=== PATIENT | female | born 1955 | race Caucasian/White ===

== ENCOUNTER 2017-01-03 05:37 | Inpatient (IN) | payer MEDICAID ==
[~2017-01-03] VITALS: Ht 152.4 cm; Wt 68.7 kg
[~2017-01-03 05:37] MED LIST: CITA20TA5 PO; ESTR1TAB15 PO; HYDR-3240 PO; IBUP-1223 PO; PRAV20TA2 PO; TIZA4CAP PO
[2017-01-03] MEDS ORDERED: LACTATED RINGERS 1,000 ML IV SCH (06:46)
[2017-01-03] MEDS ORDERED: GABA300C10 PO (06:48)
[2017-01-03 06:49] VITALS: BP 102/73
[2017-01-03] MEDS ORDERED: BACITRACIN 50,000 UNIT ONE (06:50)
[2017-01-03] MEDS ORDERED: BUPIVACAINE/PF 0.5% ONE (06:50)
[2017-01-03] MEDS ORDERED: EPINEPHRINE 1 MG/ML, 1ML ONE (06:50)
[2017-01-03] MEDS ORDERED: THROMBIN 5,000 UNIT VIAL TP ONE (06:50)
[2017-01-03] MEDS ORDERED: HYDR-3240 PO (07:24)
[2017-01-03] MEDS ORDERED: FENTANYL PF 100 MCG/2ML ONE ×3 (07:24→10:03)
[2017-01-03] MEDS ORDERED: MIDAZOLAM 1 MG/ML, 2ML ONE (07:24)
[2017-01-03] MEDS ORDERED: PNEUMOCOCCAL 23 VACCINE IM-VACC ONE (07:30)
[2017-01-03] MEDS ORDERED: DEXAMETHASONE 4 MG/ML, 1ML ONE (07:57)
[2017-01-03] MEDS ORDERED: EPHEDRINE 50 MG/ML, 1ML ONE (07:57)
[2017-01-03] MEDS ORDERED: ONDANSETRON 2MG/ML, 2ML ONE (07:57)
[2017-01-03] MEDS ORDERED: PROPOFOL 10 MG/ML, 20ML ONE (07:57)
[2017-01-03] MEDS ORDERED: CEFAZOLIN 1,000 MG ONE (07:57)
[2017-01-03] MEDS ORDERED: SUCCINYLCHOLINE 20 MG/ML, 10ML ONE (07:57)
[2017-01-03] MEDS ORDERED: METOCLOPRAMIDE 5 MG/ML, 2ML ONE (07:57)
[2017-01-03] MEDS ORDERED: ONDANSETRON 2MG/ML, 2ML IVPush PRN ×2 (08:30→14:00)
[2017-01-03] MEDS ORDERED: MIDAZOLAM 1 MG/ML, 2ML IV PRN (08:30)
[2017-01-03] MEDS ORDERED: OXYcodone 5 MG/5 ML ORAL.SOL UDC PO PRN (08:30)
[2017-01-03] MEDS ORDERED: ALBUTEROL/IPRATROPIUM 2.5MG/0.5MG, 3 ML NPPB PRN (08:30)
[2017-01-03] MEDS ORDERED: MEPERIDINE/PF 25MG/0.5ML IVPush PRN (08:30)
[2017-01-03] MEDS ORDERED: LABETALOL 5MG/ML, 20ML IV PRN (08:30)
[2017-01-03] MEDS ORDERED: hydrALAzine 20 MG/ML, 1ML IV PRN (08:30)
[2017-01-03] MEDS ORDERED: ACETAMINOPHEN 325 MG TABLET PO PRN (08:30)
[2017-01-03] MEDS ORDERED: EPHEDRINE 50 MG/ML, 1ML IVPush PRN (08:30)
[2017-01-03] MEDS ORDERED: PROMETHAZINE 25 MG/ML, 1ML IV PRN (08:30)
[2017-01-03] MEDS ORDERED: HYDROmorphone 2 MG/ML, 1ML ONE (09:13)
[2017-01-03] MEDS ORDERED: HYDROmorphone 1 MG/ML, 1ML ONE (09:27)
[2017-01-03] MEDS ORDERED: OXYcodone 5 MG/5 ML ORAL.SOL UDC ONE (09:27)
[2017-01-03] MEDS ORDERED: ACETAMINOPHEN 650 MG/20.3 ML UDC ONE (09:27)
[2017-01-03] MEDS: HYDROmorphone 1 MG/ML, 1ML IV PRN ×2 (09:31→09:44)
[2017-01-03] MEDS ORDERED: METHOCARBAMOL 750 MG TABLET ONE (09:53)
[2017-01-03] MEDS ORDERED: METHOCARBAMOL 750 MG TABLET PO ONE (10:00)
[2017-01-03] MEDS: FENTANYL PF 100 MCG/2ML IV PRN ×2 (10:06→10:15)
[2017-01-03] MEDS ORDERED: OXYcodone/APAP 10/325MG TABLET ONE (13:50)
[2017-01-03] MEDS: OXYcodone/APAP 10/325MG TABLET PO PRN ×2 (13:57→21:23)
[2017-01-03] MEDS ORDERED: DIPHENHYDRAMINE 50 MG CAPSULE PO PRN (14:00)
[2017-01-03] MEDS ORDERED: DIPHENHYDRAMINE 50 MG/ML, 1ML IM PRN (14:00)
[2017-01-03] MEDS ORDERED: PHARMACY MAY ADJ FOR RENAL FX MC PRN (14:00)
[2017-01-03] MEDS ORDERED: ZOLPIDEM 5MG TABLET PO PRN (14:00)
[2017-01-03] MEDS ORDERED: SENNA/DOCUSATE TABLET PO PRN (14:00)
[2017-01-03] MEDS ORDERED: PROMETHAZINE 25 MG/ML, 1ML IM PRN (14:00)
[2017-01-03] MEDS ORDERED: HYDROmorphone/PF 4 MG/ML, 1ML IM PRN (14:00)
[2017-01-03] MEDS ORDERED: MAGNESIUM HYDROXIDE 8%, 30ML UDC PO PRN (14:00)
[2017-01-03] MEDS ORDERED: BISACODYL 10 MG SUPP PR PRN (14:00)
[2017-01-03] MEDS ORDERED: HYDROmorphone 2 MG/ML, 1ML IM PRN (16:00)
[2017-01-03] MEDS: CEFAZOLIN PMX 1GM/50ML 50 ML IVPB SCH (16:53)
[2017-01-03] MEDS: GABAPENTIN 300 MG CAPSULE PO SCH ×2 (16:53→21:17)
[2017-01-03] MEDS: NS + 20MEQ KCL 1,000 ML IV SCH (16:53)
[2017-01-03] MEDS: TIZANIDINE 4MG TABLET PO SCH (17:10)
[2017-01-03] MEDS ORDERED: METHOCARBAMOL 750 MG TABLET PO PRN (17:35)
[2017-01-03 17:38] VITALS: BP 109/70
[2017-01-03 20:04] VITALS: BP 104/65
[2017-01-03] MEDS ORDERED: METHOCARBAMOL 750 MG in DEXTROSE 5% 100 ML IV PRN (22:00)
[2017-01-03 23:44] VITALS: BP 110/58
[2017-01-04] MEDS: CEFAZOLIN PMX 1GM/50ML 50 ML IVPB SCH (01:14)
[2017-01-04] MEDS: TIZANIDINE 4MG TABLET PO SCH ×2 (01:14→08:46)
[2017-01-04] MEDS: OXYcodone/APAP 10/325MG TABLET PO PRN ×2 (01:44→06:26)
[2017-01-04 04:00] VITALS: BP 92/60
[2017-01-04] MEDS: NS + 20MEQ KCL 1,000 ML IV SCH (06:01)
[2017-01-04 08:42] VITALS: BP 115/75
[2017-01-04] MEDS: GABAPENTIN 300 MG CAPSULE PO SCH (08:48)
[2017-01-04] MEDS ORDERED: ESTRADIOL 1 MG TABLET PO SCH (09:00)
[2017-01-04] MEDS ORDERED: CITALOPRAM 20 MG TABLET PO SCH (09:00)
[2017-01-04] MEDS ORDERED: SENNA/DOCUSATE TABLET PO SCH (09:00)
[2017-01-04] MEDS ORDERED: OXYC-307 PO (09:08)
== END 2017-01-04 09:55 | disposition home or self-care (01) | DRG 517 ==
LOC: OUT 05:37 → ORIP 12:55 → 4NOR 15:12 → DCLOUNGE 01-04 09:48
PROVIDERS: ADMIT Neurological Surgery; ATTEND Neurological Surgery
PROC: 01NB0ZZ Release Lumbar Nerve, Open Approach (ICD-10-PCS; principal; 2017-01-03 08:00)
DX: M54.16 Radiculopathy, lumbar region (principal); M48.07 Spinal stenosis, lumbosacral region; Z87.891 Personal history of nicotine dependence
CPT/HCPCS: 72100; 90732; 93005; J0171; J0690; J1100; J1170; J2250; J2405; J2704; J3010; J3480; J3490; J0330; J2765; J7120

== ENCOUNTER 2021-01-19 00:31 | Inpatient (IN) | payer MEDICAID ==
[~2021-01-19] VITALS: Ht 160 cm; Wt 74.5 kg
[~2021-01-19 00:31] MED LIST changes: -CITA20TA5 PO; +CITA20TA6 PO; +GABA300C10 PO; +HYDR-2214 PO; -HYDR-3240 PO; +OXYC-501 PO
[2021-01-19] MEDS ORDERED: MORPHINE SULFATE 4 MG/ML, 1ML ONE (00:47)
[2021-01-19] MEDS ORDERED: ONDANSETRON 2MG/ML, 2ML ONE (00:47)
[2021-01-19] MEDS ORDERED: SODIUM CHLORIDE FLUSH 10ML SYR IVF ONE (01:00)
[2021-01-19] MEDS ORDERED: MORPHINE SULFATE 4 MG/ML, 1ML IVPush PRN (01:00)
[2021-01-19] MEDS ORDERED: ONDANSETRON 2MG/ML, 2ML IVPush ONE (01:00)
[2021-01-19] MEDS ORDERED: SODIUM CHLORIDE 0.9% 1,000ML IVBOLUS ONE (01:00)
[2021-01-19 01:13] LABS: ALANINE AMINOTRANSFERASE 460 U/L (12-78); ALBUMIN 3.2 g/dL (3.4-5.0); ANION GAP 9 mmol/L (5-15); CALCIUM 8.8 mg/dL (8.5-10.1); CHLORIDE 106 mmol/L (98-107); CREATININE 0.67 mg/dL (0.55-1.02)
[2021-01-19 01:15] LABS: ALKALINE PHOSPHATASE 546 U/L (45-117); BILIRUBIN,TOTAL 4.1 mg/dL (0.2-1.0); TOTAL PROTEIN 7.4 g/dL (6.4-8.2)
[2021-01-19 01:18] LABS: MEAN CORPUSCULAR HEMOGLOBIN 31.2 pg (27.0-34.8); MEAN CORPUSCULAR HGB CONC 34.1 g/dL (32.4-35.8); MEAN PLATELET VOLUME 8.8 fL (7.4-10.4); PLATELET COUNT 236 x10^3/uL (130-400); RED BLOOD COUNT 3.93 x10^6/uL (3.82-5.3); RED CELL DISTRIBUTION WIDTH 13.3 % (9.6-15.2)
[2021-01-19 01:47] LABS: <RBC MORPHOLOGY> NORMAL; BANDS%(MANUAL) 32 % (0-7); LYMPH#(MANUAL) 0.58 x10^3/uL (1-3.4); LYMPHS% (MANUAL) 6 % (22-44); METAMYELOCYTES# (MANUAL) 0.19 x10^3/uL (0-0); METAMYELOCYTES% (MANUAL) 2 % (0-1); MONOS% (MANUAL) 1 % (2-9); PMNS WITH VACUOLES 1+; SEG#(MANUAL) 5.72 x10^3/uL (1.8-6.8); SEGS% (MANUAL) 59 % (42-75)
[2021-01-19 01:48] LABS: <PLATELET ESTIMATE> ADEQUATE; <PLT MORPHOLOGY> NORMAL PLT MORPH
[2021-01-19] MEDS ORDERED: POTASSIUM CHLORIDE 40 MEQ in SODIUM CHLORIDE 0.9% 500 ML IV ONE (02:00)
[2021-01-19] MEDS ORDERED: PIPERACILLIN/TAZO 3.375 GM in DEXTROSE 5% 50 ML IVPB ONE (02:00)
[2021-01-19] MEDS ORDERED: LABETALOL 5MG/ML, 20ML IVPush PRN (03:00)
[2021-01-19] MEDS ORDERED: LACTATED RINGERS 1,000 ML IV SCH (03:00)
[2021-01-19 04:33] VITALS: BP 110/71
[2021-01-19] MEDS: KETOROLAC 30 MG/1 ML IV PRN ×2 (04:42→10:26)
[2021-01-19] MEDS: ONDANSETRON 2MG/ML, 2ML IVPush PRN ×2 (06:44→13:34)
[2021-01-19 07:36] VITALS: BP 110/68
[2021-01-19] MEDS: morphine SULFATE 10 MG/ML, 1ML IVPush PRN ×4 (07:52→21:11)
[2021-01-19] MEDS: FAMOTIDINE 20 MG/2 ML IVPush SCH ×2 (07:52→21:09)
[2021-01-19] MEDS: PIPERACILLIN/TAZO 3.375 GM in DEXTROSE 5% 50 ML IV SCH ×3 (08:52→21:09)
[2021-01-19 09:12] LABS: BASOPHILS % (AUTO) 0 % (0-1); EOSINOPHILS % (AUTO) 0 % (1-7); LYMPHOCYTES % (AUTO) 3 % (22-44); MEAN CORPUSCULAR HEMOGLOBIN 31.6 pg (27.0-34.8); MEAN CORPUSCULAR HGB CONC 34.3 g/dL (32.4-35.8); MEAN PLATELET VOLUME 8.9 fL (7.4-10.4); MONOCYTES % (AUTO) 4 % (2-9); NEUTROPHILS % (AUTO) 92 % (42-75); PLATELET COUNT 211 x10^3/uL (130-400); RED BLOOD COUNT 3.68 x10^6/uL (3.82-5.3); RED CELL DISTRIBUTION WIDTH 13.5 % (9.6-15.2)
[2021-01-19 09:19] LABS: ANION GAP 8 mmol/L (5-15); CALCIUM 8.2 mg/dL (8.5-10.1); CHLORIDE 111 mmol/L (98-107); CREATININE 0.63 mg/dL (0.55-1.02)
[2021-01-19 11:55] LABS: ALBUMIN 2.9 g/dL (3.4-5.0); BILIRUBIN, DIRECT 3.5 mg/dL (0.1-0.2); BILIRUBIN,INDIRECT 1.1 mg/dL (0.0-2.0); BILIRUBIN,TOTAL 4.6 mg/dL (0.2-1.0); TOTAL PROTEIN 6.9 g/dL (6.4-8.2)
[2021-01-19] MEDS ORDERED: METH-639 PO (12:21)
[2021-01-19] MEDS ORDERED: OMEP-110 PO (12:21)
[2021-01-19] MEDS ORDERED: PREG75CA PO (12:21)
[2021-01-19 13:25] VITALS: BP 113/74
[2021-01-19] MEDS: GABAPENTIN 300 MG CAPSULE PO SCH ×2 (15:45→21:10)
[2021-01-19] MEDS ORDERED: TIZANIDINE 4MG TABLET PO SCH (16:00)
[2021-01-19] MEDS: POTASSIUM CHLORIDE 10 MEQ in D5%-LACTATED RINGERS 1,000 ML IV SCH (16:26)
[2021-01-19 18:33] VITALS: BP 105/70
[2021-01-19] MEDS: PREGABALIN 75 MG CAPSULE PO SCH (21:09)
[2021-01-20 00:51] VITALS: BP 123/79
[2021-01-20] MEDS: PIPERACILLIN/TAZO 3.375 GM in DEXTROSE 5% 50 ML IV SCH ×4 (02:59→21:05)
[2021-01-20] MEDS: KETOROLAC 30 MG/1 ML IV PRN ×2 (05:06→08:55)
[2021-01-20] MEDS: ONDANSETRON 2MG/ML, 2ML IVPush PRN (05:11)
[2021-01-20] MEDS: GABAPENTIN 300 MG CAPSULE PO SCH ×4 (05:22→21:05)
[2021-01-20 05:34] LABS: MEAN CORPUSCULAR HEMOGLOBIN 30.9 pg (27.0-34.8); MEAN CORPUSCULAR HGB CONC 33.6 g/dL (32.4-35.8); MEAN PLATELET VOLUME 8.9 fL (7.4-10.4); PLATELET COUNT 206 x10^3/uL (130-400); RED BLOOD COUNT 3.45 x10^6/uL (3.82-5.3); RED CELL DISTRIBUTION WIDTH 13.6 % (9.6-15.2)
[2021-01-20 05:45] LABS: CALCIUM 8.2 mg/dL (8.5-10.1); CHLORIDE 106 mmol/L (98-107)
[2021-01-20 05:50] LABS: ALANINE AMINOTRANSFERASE 231 U/L (12-78); ALBUMIN 2.4 g/dL (3.4-5.0); ALKALINE PHOSPHATASE 355 U/L (45-117); ANION GAP 5 mmol/L (5-15); BILIRUBIN,TOTAL 3.2 mg/dL (0.2-1.0); CREATININE 0.52 mg/dL (0.55-1.02); TOTAL PROTEIN 6.3 g/dL (6.4-8.2)
[2021-01-20] MEDS: POTASSIUM CHLORIDE 10 MEQ in D5%-LACTATED RINGERS 1,000 ML IV SCH (06:36)
[2021-01-20 07:58] VITALS: BP 117/70
[2021-01-20] MEDS: FAMOTIDINE 20 MG/2 ML IVPush SCH ×2 (08:55→21:05)
[2021-01-20 08:56] LABS: BAND#(MANUAL) 1.69 x10^3/uL; BANDS%(MANUAL) 13 % (0-7); EOS#(MANUAL) 0.13 x10^3/uL (0.0-0.4); EOS% (MANUAL) 1 % (1-7); LYMPH#(MANUAL) 1.04 x10^3/uL (1-3.4); LYMPHS% (MANUAL) 8 % (22-44); REACTIVE LYMPHS # (MANUAL) 0.13 x10^3/uL (0-0); REACTIVE LYMPHS % (MANUAL) 1 % (0-0); SEG#(MANUAL) 10.01 x10^3/uL (1.8-6.8); SEGS% (MANUAL) 77 % (42-75)
[2021-01-20 08:58] LABS: <PLATELET ESTIMATE> ADEQUATE; <PLT MORPHOLOGY> NORMAL PLT MORPH; <RBC MORPHOLOGY> NORMAL; PMNS WITH VACUOLES 1+; TOXIC GRAN 1+
[2021-01-20] MEDS: PREGABALIN 75 MG CAPSULE PO SCH ×2 (09:00→21:05)
[2021-01-20] MEDS: CITALOPRAM 20 MG TABLET PO SCH (09:12)
[2021-01-20] MEDS: morphine SULFATE 10 MG/ML, 1ML IVPush PRN ×4 (10:14→22:04)
[2021-01-20] MEDS ORDERED: OMNIPAQUE 350 MG/ML, 50 ML BOTTLE ONE (10:30)
[2021-01-20] MEDS ORDERED: PROPOFOL 10 MG/ML, 20ML ONE (10:58)
[2021-01-20] MEDS ORDERED: LIDOCAINE-MPF 2% ,5ML ONE (10:58)
[2021-01-20] MEDS ORDERED: SUCCINYLCHOLINE 20 MG/ML, 10ML ONE (10:58)
[2021-01-20] MEDS ORDERED: MIDAZOLAM 1 MG/ML, 2ML ONE (11:00)
[2021-01-20] MEDS ORDERED: ONDANSETRON 2MG/ML, 2ML ONE (11:58)
[2021-01-20] MEDS ORDERED: FENTANYL PF 100 MCG/2ML ONE (12:26)
[2021-01-20] MEDS: FENTANYL PF 100 MCG/2ML IV PRN ×2 (12:28→13:02)
[2021-01-20] MEDS ORDERED: ACETAMINOPHEN 325 MG TABLET PO PRN (12:30)
[2021-01-20] MEDS ORDERED: morphine SULFATE 10 MG/ML, 1ML IVPush PRN (12:30)
[2021-01-20] MEDS ORDERED: PROMETHAZINE 25 MG/ML, 1ML IVPush PRN (12:30)
[2021-01-20] MEDS ORDERED: OXYcodone 5 MG/5 ML ORAL.SOL UDC PO PRN (12:30)
[2021-01-20] MEDS ORDERED: INDOMETHACIN 50 MG SUPP.RECT ONE (12:50)
[2021-01-20] MEDS ORDERED: INDOMETHACIN 50 MG SUPP.RECT PR ONE (13:00)
[2021-01-20 13:56] VITALS: BP 117/71
[2021-01-20] MEDS ORDERED: SODIUM CHLORIDE 0.9% 500 ML IV SCH (19:30)
[2021-01-20 20:25] VITALS: BP 129/85
[2021-01-20] MEDS: TIZANIDINE 4MG TABLET PO PRN (21:05)
[2021-01-21 00:07] VITALS: BP 98/61
[2021-01-21] MEDS: PIPERACILLIN/TAZO 3.375 GM in DEXTROSE 5% 50 ML IV SCH ×4 (03:00→20:16)
[2021-01-21] MEDS: morphine SULFATE 10 MG/ML, 1ML IVPush PRN ×4 (04:08→20:07)
[2021-01-21 04:10] VITALS: BP 104/62
[2021-01-21] MEDS: GABAPENTIN 300 MG CAPSULE PO SCH ×4 (05:40→20:07)
[2021-01-21 05:48] LABS: BASOPHILS % (AUTO) 0 % (0-1); EOSINOPHILS % (AUTO) 2 % (1-7); LYMPHOCYTES % (AUTO) 15 % (22-44); MEAN CORPUSCULAR HEMOGLOBIN 31.5 pg (27.0-34.8); MEAN CORPUSCULAR HGB CONC 34.4 g/dL (32.4-35.8); MONOCYTES % (AUTO) 6 % (2-9); NEUTROPHILS % (AUTO) 77 % (42-75); PLATELET COUNT 202 x10^3/uL (130-400); RED BLOOD COUNT 3.36 x10^6/uL (3.82-5.3); RED CELL DISTRIBUTION WIDTH 13.7 % (9.6-15.2)
[2021-01-21 05:59] LABS: CHLORIDE 106 mmol/L (98-107)
[2021-01-21 06:13] LABS: ALANINE AMINOTRANSFERASE 151 U/L (12-78); ALBUMIN 0.1 g/dL (3.4-5.0); ALKALINE PHOSPHATASE 318 U/L (45-117); ANION GAP 5 mmol/L (5-15); BILIRUBIN,TOTAL 1.3 mg/dL (0.2-1.0); CREATININE 0.49 mg/dL (0.55-1.02); TOTAL PROTEIN 6.2 g/dL (6.4-8.2)
[2021-01-21] MEDS ORDERED: POTASSIUM PHOSPHATE 44 MEQ in SODIUM CHLORIDE 0.9% 500 ML IV ONE (08:00)
[2021-01-21 08:03] VITALS: BP 117/76
[2021-01-21] MEDS: CITALOPRAM 20 MG TABLET PO SCH (08:06)
[2021-01-21] MEDS: FAMOTIDINE 20 MG/2 ML IVPush SCH ×2 (08:06→20:07)
[2021-01-21] MEDS: PREGABALIN 75 MG CAPSULE PO SCH ×2 (08:06→20:07)
[2021-01-21 14:02] VITALS: BP 125/75
[2021-01-21 14:11] VITALS: BP 152/95
[2021-01-21] MEDS: POTASSIUM CHLORIDE 10 MEQ in D5%-LACTATED RINGERS 1,000 ML IV SCH (17:36)
[2021-01-21 18:43] VITALS: BP 138/92
[2021-01-22 02:00] VITALS: BP 125/76
[2021-01-22] MEDS: PIPERACILLIN/TAZO 3.375 GM in DEXTROSE 5% 50 ML IV SCH ×4 (03:24→21:06)
[2021-01-22] MEDS: morphine SULFATE 10 MG/ML, 1ML IVPush PRN ×4 (05:48→21:07)
[2021-01-22] MEDS: GABAPENTIN 300 MG CAPSULE PO SCH ×5 (06:00→21:07)
[2021-01-22] MEDS: TIZANIDINE 4MG TABLET PO PRN (06:27)
[2021-01-22 07:15] LABS: BASOPHILS % (AUTO) 1 % (0-1); EOSINOPHILS % (AUTO) 4 % (1-7); LYMPHOCYTES % (AUTO) 16 % (22-44); MEAN CORPUSCULAR HEMOGLOBIN 31.1 pg (27.0-34.8); MEAN CORPUSCULAR HGB CONC 33.7 g/dL (32.4-35.8); MEAN PLATELET VOLUME 8.6 fL (7.4-10.4); MONOCYTES % (AUTO) 12 % (2-9); NEUTROPHILS % (AUTO) 68 % (42-75); PLATELET COUNT 275 x10^3/uL (130-400); RED BLOOD COUNT 3.55 x10^6/uL (3.82-5.3)
[2021-01-22 07:23] LABS: CHLORIDE 107 mmol/L (98-107)
[2021-01-22 07:29] LABS: ALANINE AMINOTRANSFERASE 114 U/L (12-78); ALBUMIN 2.3 g/dL (3.4-5.0); ALKALINE PHOSPHATASE 330 U/L (45-117); ANION GAP 4 mmol/L (5-15); BILIRUBIN,TOTAL 0.9 mg/dL (0.2-1.0); CALCIUM 8.5 mg/dL (8.5-10.1); CREATININE 0.53 mg/dL (0.55-1.02); TOTAL PROTEIN 6.5 g/dL (6.4-8.2)
[2021-01-22 07:36] VITALS: BP 128/80
[2021-01-22] MEDS: CITALOPRAM 20 MG TABLET PO SCH (09:30)
[2021-01-22] MEDS: FAMOTIDINE 20 MG/2 ML IVPush SCH (09:30)
[2021-01-22] MEDS: PREGABALIN 75 MG CAPSULE PO SCH ×2 (09:30→21:07)
[2021-01-22] MEDS: POTASSIUM CHLORIDE 10 MEQ in D5%-LACTATED RINGERS 1,000 ML IV SCH ×2 (12:24→22:01)
[2021-01-22 13:13] VITALS: BP 123/82
[2021-01-22] MEDS ORDERED: OMNIPAQUE 350 MG/ML, 100ML BOTTLE ONE (18:24)
[2021-01-22 18:38] VITALS: BP 130/86
[2021-01-22] MEDS: PANTOPRAZOLE 40 MG IV IVPush SCH (21:07)
[2021-01-22] MEDS: MELATONIN 5 MG TABLET PO PRN (23:17)
[2021-01-23 00:56] VITALS: BP 128/81
[2021-01-23] MEDS: PIPERACILLIN/TAZO 3.375 GM in DEXTROSE 5% 50 ML IV SCH ×4 (02:35→20:47)
[2021-01-23] MEDS: GABAPENTIN 300 MG CAPSULE PO SCH ×4 (05:37→20:47)
[2021-01-23] MEDS: POTASSIUM CHLORIDE 10 MEQ in D5%-LACTATED RINGERS 1,000 ML IV SCH ×2 (05:37→17:09)
[2021-01-23 06:06] LABS: ALANINE AMINOTRANSFERASE 87 U/L (12-78); ALBUMIN 2.3 g/dL (3.4-5.0); ANION GAP 6 mmol/L (5-15); CALCIUM 8.1 mg/dL (8.5-10.1); CHLORIDE 106 mmol/L (98-107); CREATININE 0.43 mg/dL (0.55-1.02)
[2021-01-23 06:08] LABS: ALKALINE PHOSPHATASE 311 U/L (45-117); BILIRUBIN,TOTAL 0.8 mg/dL (0.2-1.0); TOTAL PROTEIN 6.3 g/dL (6.4-8.2)
[2021-01-23 06:10] LABS: BASOPHILS % (AUTO) 1 % (0-1); EOSINOPHILS % (AUTO) 5 % (1-7); LYMPHOCYTES % (AUTO) 27 % (22-44); MEAN CORPUSCULAR HEMOGLOBIN 31.2 pg (27.0-34.8); MEAN PLATELET VOLUME 8.8 fL (7.4-10.4); MONOCYTES % (AUTO) 18 % (2-9); NEUTROPHILS % (AUTO) 50 % (42-75); PLATELET COUNT 303 x10^3/uL (130-400); RED BLOOD COUNT 3.43 x10^6/uL (3.82-5.3); RED CELL DISTRIBUTION WIDTH 13.8 % (9.6-15.2)
[2021-01-23] MEDS ORDERED: POTASSIUM CHLORIDE 40 MEQ in SODIUM CHLORIDE 0.9% 500 ML IV ONE (08:00)
[2021-01-23 09:00] VITALS: BP 125/82
[2021-01-23] MEDS ORDERED: INDOCYANINE GREEN 25 MG VIAL IVPush ONE (09:00)
[2021-01-23] MEDS: PANTOPRAZOLE 40 MG IV IVPush SCH ×2 (09:46→20:47)
[2021-01-23] MEDS: CITALOPRAM 20 MG TABLET PO SCH (09:50)
[2021-01-23] MEDS: PREGABALIN 75 MG CAPSULE PO SCH ×2 (09:50→20:47)
[2021-01-23] MEDS ORDERED: BUPIVACAINE/PF 0.5% ONE (10:01)
[2021-01-23] MEDS ORDERED: EPINEPHRINE 1 MG/ML, 1ML ONE (10:01)
[2021-01-23] MEDS ORDERED: INDOCYANINE GREEN 25 MG VIAL ONE (10:01)
[2021-01-23] MEDS ORDERED: INDOCYANINE GREEN 25 MG VIAL IV ONE (10:30)
[2021-01-23] MEDS ORDERED: FENTANYL PF 100 MCG/2ML ONE ×3 (11:11→13:07)
[2021-01-23] MEDS ORDERED: MIDAZOLAM 1 MG/ML, 2ML ONE (11:12)
[2021-01-23] MEDS ORDERED: BUPIVACAINE/PF-EPI 0.5% 1:200K IM ONE (11:43)
[2021-01-23] MEDS ORDERED: PROMETHAZINE 25 MG/ML, 1ML IVPush PRN (12:00)
[2021-01-23] MEDS ORDERED: FENTANYL PF 100 MCG/2ML IV PRN (12:00)
[2021-01-23] MEDS ORDERED: LABETALOL 5MG/ML, 20ML IV PRN (12:00)
[2021-01-23] MEDS ORDERED: MEPERIDINE/PF 25MG/0.5ML IVPush PRN (12:00)
[2021-01-23] MEDS ORDERED: OXYcodone 5 MG/5 ML ORAL.SOL UDC PO PRN (12:00)
[2021-01-23] MEDS ORDERED: HYDROmorphone 1 MG/ML, 1ML INJ IVPush PRN (12:00)
[2021-01-23] MEDS ORDERED: ALBUTEROL SULFATE 2.5 MG/3 ML NPPB PRN (12:00)
[2021-01-23] MEDS ORDERED: MIDAZOLAM 1 MG/ML, 2ML IV PRN (12:00)
[2021-01-23] MEDS ORDERED: LIDOCAINE-MPF 2% ,5ML ONE (12:39)
[2021-01-23] MEDS ORDERED: SUGAMMADEX 200 MG/2 ML IVPush ONE (12:39)
[2021-01-23] MEDS ORDERED: KETOROLAC 30 MG/1 ML ONE (12:39)
[2021-01-23] MEDS ORDERED: ONDANSETRON 2MG/ML, 2ML ONE (12:40)
[2021-01-23] MEDS ORDERED: CEFAZOLIN 1,000 MG ONE (12:40)
[2021-01-23] MEDS ORDERED: PROPOFOL 10 MG/ML, 20ML ONE (12:40)
[2021-01-23] MEDS ORDERED: ROCURONIUM 10MG/ML,5ML ONE (12:40)
[2021-01-23] MEDS ORDERED: PROMETHAZINE 25 MG/ML, 1ML ONE (12:54)
[2021-01-23] MEDS ORDERED: OXYcodone 5 MG/5 ML ORAL.SOL UDC ONE (13:08)
[2021-01-23 14:32] VITALS: BP 143/84
[2021-01-23] MEDS: morphine SULFATE 10 MG/ML, 1ML IVPush PRN ×2 (18:19→22:01)
[2021-01-23 20:33] VITALS: BP 117/81
[2021-01-23] MEDS: ONDANSETRON 2MG/ML, 2ML IVPush PRN (22:01)
[2021-01-23] MEDS: MELATONIN 5 MG TABLET PO PRN (23:18)
[2021-01-24 00:26] VITALS: BP 125/70
[2021-01-24] MEDS: PIPERACILLIN/TAZO 3.375 GM in DEXTROSE 5% 50 ML IV SCH ×4 (02:51→20:51)
[2021-01-24] MEDS: POTASSIUM CHLORIDE 10 MEQ in D5%-LACTATED RINGERS 1,000 ML IV SCH ×3 (02:51→21:35)
[2021-01-24] MEDS: morphine SULFATE 10 MG/ML, 1ML IVPush PRN ×4 (02:51→18:29)
[2021-01-24] MEDS: GABAPENTIN 300 MG CAPSULE PO SCH ×4 (06:01→20:51)
[2021-01-24 06:45] LABS: HCT (SEDRATE) 32.4 % (34.6-47.8)
[2021-01-24 06:47] LABS: BASOPHILS % (AUTO) 0 % (0-1); EOSINOPHILS % (AUTO) 0 % (1-7); LYMPHOCYTES % (AUTO) 15 % (22-44); MEAN CORPUSCULAR HEMOGLOBIN 31.5 pg (27.0-34.8); MEAN CORPUSCULAR HGB CONC 34.1 g/dL (32.4-35.8); MEAN PLATELET VOLUME 8.9 fL (7.4-10.4); MONOCYTES % (AUTO) 10 % (2-9); NEUTROPHILS % (AUTO) 75 % (42-75); PLATELET COUNT 331 x10^3/uL (130-400); RED BLOOD COUNT 3.49 x10^6/uL (3.82-5.3); RED CELL DISTRIBUTION WIDTH 14.2 % (9.6-15.2)
[2021-01-24 06:56] LABS: ANION GAP 7 mmol/L (5-15); CALCIUM 8.5 mg/dL (8.5-10.1); CHLORIDE 107 mmol/L (98-107)
[2021-01-24 07:07] LABS: ALANINE AMINOTRANSFERASE 86 U/L (12-78); ALBUMIN 2.4 g/dL (3.4-5.0); ALKALINE PHOSPHATASE 309 U/L (45-117); BILIRUBIN,TOTAL 0.6 mg/dL (0.2-1.0); CREATININE 0.57 mg/dL (0.55-1.02); TOTAL PROTEIN 6.7 g/dL (6.4-8.2)
[2021-01-24 08:00] VITALS: BP 128/80
[2021-01-24] MEDS: ENOXAPARIN 40 MG/0.4 ML SQ SCH (08:00)
[2021-01-24] MEDS: CITALOPRAM 20 MG TABLET PO SCH (10:17)
[2021-01-24] MEDS: PANTOPRAZOLE 40 MG IV IVPush SCH ×2 (10:17→21:23)
[2021-01-24] MEDS: PREGABALIN 75 MG CAPSULE PO SCH ×2 (10:17→20:51)
[2021-01-24] MEDS: ONDANSETRON 2MG/ML, 2ML IVPush PRN (15:22)
[2021-01-24 18:47] VITALS: BP 145/88
[2021-01-24] MEDS: MELATONIN 5 MG TABLET PO PRN (20:51)
[2021-01-25 00:09] VITALS: BP 134/86
[2021-01-25] MEDS: morphine SULFATE 10 MG/ML, 1ML IVPush PRN ×2 (02:15→09:54)
[2021-01-25] MEDS: PIPERACILLIN/TAZO 3.375 GM in DEXTROSE 5% 50 ML IV SCH ×2 (02:15→09:36)
[2021-01-25] MEDS: ONDANSETRON 2MG/ML, 2ML IVPush PRN ×2 (04:10→13:54)
[2021-01-25] MEDS: POTASSIUM CHLORIDE 10 MEQ in D5%-LACTATED RINGERS 1,000 ML IV SCH (05:07)
[2021-01-25] MEDS: GABAPENTIN 300 MG CAPSULE PO SCH ×2 (05:13→09:36)
[2021-01-25 07:52] VITALS: BP 134/82
[2021-01-25] MEDS ORDERED: OXYC-302 PO (09:11)
[2021-01-25] MEDS: PANTOPRAZOLE 40 MG IV IVPush SCH (09:36)
[2021-01-25] MEDS: PREGABALIN 75 MG CAPSULE PO SCH (09:37)
[2021-01-25] MEDS: CITALOPRAM 20 MG TABLET PO SCH (09:37)
[2021-01-25] MEDS: ENOXAPARIN 40 MG/0.4 ML SQ SCH (09:37)
[2021-01-25 12:39] VITALS: BP 127/80
== END 2021-01-25 14:19 | disposition home or self-care (01) | DRG 263 ==
LOC: ED 03:13 → EDIP 03:17 → 3N 04:26
PROVIDERS: ADMIT Internal Medicine; ATTEND Family Medicine
PROC: 0FC98ZZ Extirpation of Matter from Common Bile Duct, Via Natural or Artificial Opening Endoscopic (ICD-10-PCS; 2021-01-20)
PROC: 0F798DZ Dilation of Common Bile Duct with Intraluminal Device, Via Natural or Artificial Opening Endoscopic (ICD-10-PCS; 2021-01-20)
PROC: 0FT44ZZ Resection of Gallbladder, Percutaneous Endoscopic Approach (ICD-10-PCS; principal; 2021-01-23 10:30)
DX: K80.66 Calculus of gallbladder and bile duct with acute and chronic cholecystitis without obstruction (principal); K65.9 Peritonitis, unspecified; K22.2 Esophageal obstruction; D73.4 Cyst of spleen; C50.919 Malignant neoplasm of unspecified site of unspecified female breast; F19.10 Other psychoactive substance abuse, uncomplicated; E66.01 Morbid (severe) obesity due to excess calories; B17.9 Acute viral hepatitis, unspecified; G89.29 Other chronic pain; F32.9 Major depressive disorder, single episode, unspecified; C53.9 Malignant neoplasm of cervix uteri, unspecified; E78.00 Pure hypercholesterolemia, unspecified; I10 Essential (primary) hypertension; I25.10 Atherosclerotic heart disease of native coronary artery without angina pectoris; M54.5 Low back pain; Z20.822 Contact with and (suspected) exposure to COVID-19; F41.9 Anxiety disorder, unspecified; M54.12 Radiculopathy, cervical region; Z87.891 Personal history of nicotine dependence; Z68.33 Body mass index [BMI] 33.0-33.9, adult; Z80.0 Family history of malignant neoplasm of digestive organs; I25.2 Old myocardial infarction; Z90.49 Acquired absence of other specified parts of digestive tract; Z90.710 Acquired absence of both cervix and uterus
CPT/HCPCS: 36415; 74328; 96365; 96375; 99285; J3490; J7121; S0020; 74178; 74181; 76700; 80048; 80053; 80076; 83605; 83690; 83735; 84100; 85025; 85651; 86140; 87635; 88304; 93005; G0378; J0171; J0690; J1650; J1885; J2250; J2405; J2543; J2550; J2704; J3010; J3480; Q9967; C1769; C1894; C2625; C9113; J0330; J2270; J7030; J7040; J7120